=== PATIENT | female | born 1945 | race Caucasian/White ===

== ENCOUNTER 2024-07-15 10:00 | Inpatient (IN) | payer MEDICARE, BC ==
[2024-07-15] MEDS ORDERED: Nitroglycerin 0.4 MG Tab.SL SL PRN (10:22)
[2024-07-15] MEDS ORDERED: Non-Formulary Medication 1 Each (Alendronate [Fosamax] 70 MG/75 ML Bottle) PO SCH (10:30)
[2024-07-15] MEDS: Isosorbide Mononitrate 30 MG Tab.ER PO SCH (18:24)
[2024-07-15] MEDS: Docusate Sodium 100 MG Cap PO SCH (19:40)
[2024-07-15] MEDS: SACUBITRIL PO SCH (19:40)
[2024-07-15] MEDS: VALSARTAN PO SCH (19:40)
[2024-07-15] MEDS: atorvaSTATin 40 MG Tab PO SCH (19:41)
[2024-07-15] MEDS: Calcium Carbonate/Vitamin D3 1500 MG-400 Units Tab PO SCH (19:41)
[2024-07-15] MEDS: Apixaban 5 MG Tab PO SCH (19:41)
[2024-07-16] MEDS: Magnesium Oxide 400 MG Tab PO SCH (08:25)
[2024-07-16] MEDS: Spironolactone 25 MG Tab PO SCH (08:25)
[2024-07-16] MEDS: Pantoprazole 40 MG Tab.CR PO SCH (08:25)
[2024-07-16] MEDS: Potassium Chloride 10 MEQ Tab.ER PO SCH (08:25)
[2024-07-16] MEDS: Aspirin 81 MG Tab.EC PO SCH (08:26)
[2024-07-16] MEDS: Furosemide 40 MG Tab PO SCH (08:26)
[2024-07-16] MEDS: Metoprolol Succinate 50 MG Tab.ER PO SCH (08:27)
[2024-07-19 07:38] LABS: BASOPHILS ABSOLUTE AUTO 0.02 K/uL (0.00-0.20); BASOPHILS PERCENT AUTO 0.3 % (0.0-2.0); EOSINOPHILS PERCENT AUTO 1.3 % (0.0-5.0); HEMATOCRIT 37.9 % (34.0-46.0); HEMOGLOBIN 12.2 g/dL (11.7-15.5); LYMPHOCYTES ABSOLUTE AUTO 1.67 K/uL (0.50-3.50); LYMPHOCYTES PERCENT AUTO 21.2 % (10.0-50.0); MEAN CORPUSCULAR HGB CONC 32.2 g/dL (31.7-36.0); MONOCYTES ABSOLUTE AUTO 0.49 K/uL (0.00-1.00); MONOCYTES PERCENT AUTO 6.2 % (2.0-14.0); NEUTROPHILS ABSOLUTE AUTO 5.58 K/uL (1.40-7.00); PLATELET COUNT,PLT 284 K/uL (150-350); RED BLOOD CELL COUNT 4.21 M/uL (3.77-5.09); RED CELL DISTRIBUTION WIDTH 15.9 % (11.2-14.1); WHITE BLOOD CELL COUNT,WBC 7.9 K/uL (4.0-10.2)
[2024-07-19 07:57] LABS: ALBUMIN 3.1 g/dL (3.4-5.0); ANION GAP 7.1 meq/L (7-15); BILIRUBIN TOTAL 0.6 mg/dL (0.2-1.0); CALCIUM 9.4 mg/dL (8.5-10.1); CARBON DIOXIDE,CO2 31.9 mmol/L (21.0-32.0); CREATININE 1.15 mg/dL (0.51-1.17); EST CRCL DRUG DOSING (CG) 30.42 mL/min; POTASSIUM,K 4.9 mmol/L (3.5-5.1); PROTEIN TOTAL,TP 6.6 g/dL (6.4-8.2)
[2024-07-19] MEDS: Metoprolol Succinate 50 MG Tab.ER PO ONE (12:27)
[2024-07-22] MEDS: Metoprolol Succinate 50 MG Tab.ER PO SCH (10:49)
== END 2024-07-22 10:50 | disposition home or self-care (01) | DRG 948 ==
LOC: LL.MS 10:00
PROVIDERS: ADMIT Physician Assistant; ATTEND Physician Assistant
DX: R53.81 Other malaise (principal); E78.00 Pure hypercholesterolemia, unspecified; I25.2 Old myocardial infarction; I25.10 Atherosclerotic heart disease of native coronary artery without angina pectoris; K21.9 Gastro-esophageal reflux disease without esophagitis; K59.09 Other constipation; E66.9 Obesity, unspecified; E11.42 Type 2 diabetes mellitus with diabetic polyneuropathy; F32.A Depression, unspecified; I44.0 Atrioventricular block, first degree; F41.9 Anxiety disorder, unspecified; I12.9 Hypertensive chronic kidney disease with stage 1 through stage 4 chronic kidney disease, or unspecified chronic kidney disease; N18.9 Chronic kidney disease, unspecified; D63.1 Anemia in chronic kidney disease; Z95.5 Presence of coronary angioplasty implant and graft; Z97.3 Presence of spectacles and contact lenses; Z79.82 Long term (current) use of aspirin; Z79.01 Long term (current) use of anticoagulants; Z68.32 Body mass index [BMI] 32.0-32.9, adult; Z96.649 Presence of unspecified artificial hip joint; Z98.890 Other specified postprocedural states; Z79.899 Other long term (current) drug therapy
CPT/HCPCS: 36415; 80053; 82947; 85025; 97110-GO; 97110-GP; 97129-GO; 97161-GP; 97165-GO; 97530-GP; 97535-GO; A9270-GY

== ENCOUNTER 2024-08-21 08:45 | Emergency (ER) | payer MEDICARE, BC ==
[2024-08-21 09:30] LABS: BASOPHILS ABSOLUTE AUTO 0.03 K/uL (0.00-0.20); BASOPHILS PERCENT AUTO 0.4 % (0.0-2.0); EOSINOPHILS PERCENT AUTO 1.4 % (0.0-5.0); HEMATOCRIT 40.9 % (34.0-46.0); HEMOGLOBIN 13.2 g/dL (11.7-15.5); IMMATURE GRAN ABSOLUTE AUTO 0.02 10^3/uL (0.00-0.50); IMMATURE GRAN PERCENT AUTO 0.3 % (0.0-5.0); LYMPHOCYTES PERCENT AUTO 28.7 % (10.0-50.0); MEAN CORPUSCULAR HEMOGLOBIN 28.8 pg (28.2-33.3); MEAN CORPUSCULAR HGB CONC 32.3 g/dL (31.7-36.0); MEAN CORPUSCULAR VOLUME 89.1 fL (84.0-98.0); MONOCYTES PERCENT AUTO 5.7 % (2.0-14.0); NEUTROPHILS ABSOLUTE AUTO 4.43 K/uL (1.40-7.00); NEUTROPHILS PERCENT AUTO 63.5 % (45.0-80.0); PLATELET COUNT,PLT 245 K/uL (150-350); RED BLOOD CELL COUNT 4.59 M/uL (3.77-5.09); RED CELL DISTRIBUTION WIDTH 14.4 % (11.2-14.1)
[2024-08-21 09:52] LABS: APPEARANCE,URINE SLIGHTLY CLOUDY; BILIRUBIN,URINE NEGATIVE (NEGATIVE); COLOR,URINE YELLOW; GLUCOSE,URINE NEGATIVE (NEGATIVE); KETONES,URINE NEGATIVE (NEGATIVE); LEUKOCYTE ESTERASE,URINE TRACE (NEGATIVE); NITRITE,URINE NEGATIVE (NEGATIVE); OCCULT BLOOD,URINE NEGATIVE (NEGATIVE); PROTEIN,URINE NEGATIVE (NEGATIVE)
[2024-08-21 10:04] LABS: EPITHELIAL CELLS,URINE MODERATE /LPF; RBC,URINE 0-5 /HPF
[2024-08-21 10:05] LABS: BACTERIA,URINE NOT SEEN /HPF (NONE TO FEW); MUCUS,URINE NOT SEEN /LPF (NEGATIVE)
[2024-08-21 10:06] LABS: ALANINE AMINOTRANSFERASE,ALT 18 U/L (12-78); ALBUMIN 3.5 g/dL (3.4-5.0); ALKALINE PHOSPHATASE 96 IU/L (46-116); ANION GAP 7.7 meq/L (7-15); ASPARTATE AMNIOTRANSFERASE,AST 20 U/L (15-37); BILIRUBIN TOTAL 0.6 mg/dL (0.2-1.0); BLOOD UREA NITROGEN,BUN 23 mg/dL (7-18); CALCIUM 9.5 mg/dL (8.5-10.1); CARBON DIOXIDE,CO2 30.3 mmol/L (21.0-32.0); CHLORIDE,CL 98 mmol/L (98-107); CREATININE 1.35 mg/dL (0.51-1.17); GLUCOSE RANDOM 121 mg/dL (70-99); POTASSIUM,K 4.1 mmol/L (3.5-5.1); PROTEIN TOTAL,TP 7.7 g/dL (6.4-8.2); SODIUM,NA 136 mmol/L (136-145)
[2024-08-21 10:08] LABS: CORONAVIRUS COVID-19 NAA NEGATIVE (NEGATIVE); INFLUENZA A NAA NEGATIVE (NEGATIVE); INFLUENZA B NAA NEGATIVE (NEGATIVE); RESPIRATORY SYNCYTIAL VIR NAA NEGATIVE (NEGATIVE)
[2024-08-21] MEDS: Aspirin 81 MG Tab.Chew PO ONE (10:11)
[2024-08-21 10:18] LABS: ESTIMATED GFR 40 mL/min (>=60)
== END 2024-08-21 11:45 | disposition home or self-care (01) ==
LOC: LL.ED 08:45
DX: R53.1 Weakness (principal); I12.9 Hypertensive chronic kidney disease with stage 1 through stage 4 chronic kidney disease, or unspecified chronic kidney disease; N18.9 Chronic kidney disease, unspecified; I25.10 Atherosclerotic heart disease of native coronary artery without angina pectoris; E78.00 Pure hypercholesterolemia, unspecified; I25.2 Old myocardial infarction; K21.9 Gastro-esophageal reflux disease without esophagitis; E11.42 Type 2 diabetes mellitus with diabetic polyneuropathy; Z95.5 Presence of coronary angioplasty implant and graft; Z79.82 Long term (current) use of aspirin; Z79.01 Long term (current) use of anticoagulants; Z79.899 Other long term (current) drug therapy
CPT/HCPCS: 0241U; 36415; 70450; 71045; 80053; 81001; 83605; 84484; 85025; 93005; 99285; A9270; 93010; 99284

== ENCOUNTER 2024-12-08 14:41 | Observation (INO) | payer MEDICARE, BC ==
[2024-12-08 15:05] LABS: BASOPHILS ABSOLUTE AUTO 0.03 K/uL (0.00-0.20); BASOPHILS PERCENT AUTO 0.3 % (0.0-2.0); EOSINOPHILS ABSOLUTE AUTO 0.03 K/uL (0.00-0.50); EOSINOPHILS PERCENT AUTO 0.3 % (0.0-5.0); HEMATOCRIT 37.5 % (34.0-46.0); IMMATURE GRAN ABSOLUTE AUTO 0.02 10^3/uL (0.00-0.04); IMMATURE GRAN PERCENT AUTO 0.2 % (0.0-0.4); LYMPHOCYTES ABSOLUTE AUTO 1.51 K/uL (0.50-3.50); LYMPHOCYTES PERCENT AUTO 13.9 % (10.0-50.0); MEAN CORPUSCULAR HEMOGLOBIN 28.5 pg (28.2-33.3); MEAN CORPUSCULAR VOLUME 89.1 fL (84.0-98.0); MONOCYTES ABSOLUTE AUTO 0.44 K/uL (0.00-1.00); MONOCYTES PERCENT AUTO 4.1 % (2.0-14.0); NEUTROPHILS ABSOLUTE AUTO 8.83 K/uL (1.40-7.00); NEUTROPHILS PERCENT AUTO 81.2 % (45.0-80.0); PLATELET COUNT,PLT 333 K/uL (150-350); RED BLOOD CELL COUNT 4.21 M/uL (3.77-5.09); WHITE BLOOD CELL COUNT,WBC 10.9 K/uL (4.0-10.2)
[2024-12-08 15:33] LABS: ALANINE AMINOTRANSFERASE,ALT 10 U/L (12-78); ALBUMIN 3.2 g/dL (3.4-5.0); ALKALINE PHOSPHATASE 128 IU/L (46-116); ANION GAP 8.5 meq/L (7-15); ASPARTATE AMNIOTRANSFERASE,AST 16 U/L (15-37); BILIRUBIN TOTAL 0.5 mg/dL (0.2-1.0); BLOOD UREA NITROGEN,BUN 19 mg/dL (7-18); CALCIUM 9.6 mg/dL (8.5-10.1); CARBON DIOXIDE,CO2 28.5 mmol/L (21.0-32.0); CHLORIDE,CL 102 mmol/L (98-107); CREATINE KINASE,CK 90 U/L (26-308); CREATININE 1.27 mg/dL (0.51-1.17); GLUCOSE RANDOM 107 mg/dL (70-99); INR 1.2 (0.9-1.1); POTASSIUM,K 4.2 mmol/L (3.5-5.1); PROTEIN TOTAL,TP 7.5 g/dL (6.4-8.2); PROTHROMBIN TIME 11.5 SEC (9.0-11.1); SODIUM,NA 139 mmol/L (136-145)
[2024-12-08 16:08] LABS: ESTIMATED GFR 43 mL/min (>=60)
[2024-12-08] MEDS: Lidocaine 2% 5 ML SDV ONE (16:36)
[2024-12-08 17:13] LABS: APPEARANCE,URINE CLEAR; BILIRUBIN,URINE NEGATIVE (NEGATIVE); COLOR,URINE YELLOW; GLUCOSE,URINE 500 mg/dL (NEGATIVE); KETONES,URINE NEGATIVE (NEGATIVE); LEUKOCYTE ESTERASE,URINE NEGATIVE (NEGATIVE); NITRITE,URINE NEGATIVE (NEGATIVE); OCCULT BLOOD,URINE SMALL (NEGATIVE); PH,URINE 5.5 (5.0-9.0); PROTEIN,URINE NEGATIVE (NEGATIVE); UROBILINOGEN,URINE 0.2 E.U./dL (0.2-1.0)
[2024-12-08 17:25] LABS: BACTERIA,URINE RARE /HPF (NONE TO FEW); EPITHELIAL CELLS,URINE RARE /LPF; HYALINE CASTS,URINE RARE; MUCUS,URINE RARE /LPF (NEGATIVE); WBC,URINE 0-5 /HPF; YEAST,URINE RARE /HPF (NEGATIVE)
[2024-12-08] MEDS ORDERED: Nystatin Topical Powder 15 GM Bottle TOP PRN (17:32)
[2024-12-08] MEDS ORDERED: Nitroglycerin 0.4 MG Tab.SL SL PRN (17:32)
[2024-12-08] MEDS ORDERED: Non-Formulary Medication 1 Each (Alendronate [Fosamax] 70 MG/75 ML Bottle) PO SCH (17:45)
[2024-12-08] MEDS: Apixaban 5 MG Tab PO SCH (21:09)
[2024-12-08] MEDS: Isosorbide Mononitrate 30 MG Tab.ER PO SCH (21:09)
[2024-12-08] MEDS: Docusate Sodium 100 MG Cap PO SCH (21:11)
[2024-12-08] MEDS: atorvaSTATin 40 MG Tab PO SCH (21:11)
[2024-12-08] MEDS: Non-Formulary Medication 1 Each (Sacubitril/Valsartan [Entresto 97 Mg-103 Mg Tablet] 1 EAC PO SCH (21:33)
[2024-12-09] MEDS: Magnesium Oxide 400 MG Tab PO SCH (08:00)
[2024-12-09] MEDS: Pantoprazole 40 MG Tab.CR PO SCH (08:01)
[2024-12-09] MEDS: Calcium Carbonate/Vitamin D3 1500 MG-400 Units Tab PO SCH (08:01)
[2024-12-09] MEDS: Aspirin 81 MG Tab.Chew PO SCH (08:02)
[2024-12-09] MEDS: Spironolactone 25 MG Tab PO SCH (08:02)
[2024-12-09] MEDS: Metoprolol Succinate 50 MG Tab.ER PO SCH (08:02)
[2024-12-09] MEDS: Furosemide 40 MG Tab PO SCH (08:03)
[2024-12-09] MEDS: Non-Formulary Medication 1 Each (Empagliflozin [Jardiance] 10 MG Tablet) PO SCH (08:04)
== END 2024-12-09 13:30 | disposition home or self-care (01) ==
LOC: LL.ED 14:41 → UNDOADMOB 16:56 → LL.MS 16:56 → UNDODISOB 12-09 13:30
PROVIDERS: ADMIT Physician Assistant; ATTEND Physician Assistant
DX: S61.216A Laceration without foreign body of right little finger without damage to nail, initial encounter (principal); R53.1 Weakness; I11.0 Hypertensive heart disease with heart failure; I50.22 Chronic systolic (congestive) heart failure; E11.42 Type 2 diabetes mellitus with diabetic polyneuropathy; I48.0 Paroxysmal atrial fibrillation; F03.90 Unspecified dementia, unspecified severity, without behavioral disturbance, psychotic disturbance, mood disturbance, and anxiety; I25.10 Atherosclerotic heart disease of native coronary artery without angina pectoris; Z79.82 Long term (current) use of aspirin; Z79.01 Long term (current) use of anticoagulants; Z79.899 Other long term (current) drug therapy; W19.XXXA Unspecified fall, initial encounter
CPT/HCPCS: 36415; 70450; 73140-F9; 73562-LT; 80053; 81001; 82550; 85025; 85610; 85730; A9270-GY; G0378; J2003